=== PATIENT | female | born 1945 | race Caucasian/White ===

== ENCOUNTER → 2023-03-16 12:47 | Outpatient (CLI) | payer MEDICARE, OTHER, SELFPAY ==
--- NOTE | 2023-03-21 07:46 | PM.PFT.1 ---
Pulmonary Function Test Referral & Results Date Patient Seen: 03/16/23 Results: The spirometry demonstrates an FVC of 2.78 L which is 110% of predicted. The FEV1 was measured at 2.32 L which is 123% of predicted. The FEV1/FVC ratio was 83 which is 111% of predicted. Lung volumes show an SVC of 2.88 L which is 113% of predicted. The diffusing capacity was measured at 23.91 which is 110% of predicted. Interpretation: This study demonstrated normal spirometry
== END ==
PROVIDERS: PCP Specialist; Referring Provider Internal Medicine Cardiovascular Disease; Visit Provider Internal Medicine Cardiovascular Disease
DX: I48.0 Paroxysmal atrial fibrillation (principal); R00.1 Bradycardia, unspecified; J70.8 Respiratory conditions due to other specified external agents; Z87.891 Personal history of nicotine dependence
CPT/HCPCS: 94010; 94060; 94726; 94729

== ENCOUNTER → 2023-11-27 13:01 | Outpatient (CLI) | payer MEDICARE, OTHER, SELFPAY | LOC: RESP 13:02 | PROVIDERS: PCP Specialist; Referring Provider Internal Medicine Cardiovascular Disease; Visit Provider Internal Medicine Cardiovascular Disease | DX: I48.91 Unspecified atrial fibrillation (principal); I48.0 Paroxysmal atrial fibrillation; Z91.89 Other specified personal risk factors, not elsewhere classified; Z79.899 Other long term (current) drug therapy; Z87.891 Personal history of nicotine dependence | CPT/HCPCS: 94010; 94060; 94729 ==